=== PATIENT | male | born 1985 | race African-American/Black ===

== ENCOUNTER 2020-03-12 14:13 | Emergency (ER) | payer OTHER ==
[2020-03-12 14:24] VITALS: BP 134/89; PULSE 74; TEMP 98.1; BMI 25.4
[2020-03-12] MEDS ORDERED: ACETAMINOPHEN/CAFFEINE/BUTALBITAL 1 TAB PO ONE (14:56)
[2020-03-12] MEDS ORDERED: ACETAMINOPHEN/CAFFEINE/BUTALBITAL 1 TAB ONE (15:13)
== END 2020-03-12 16:48 | disposition home or self-care (01) ==
LOC: JER 14:13
DX: G44.209 Tension-type headache, unspecified, not intractable (principal)
CPT/HCPCS: 70450-TC; 99284-25

== ENCOUNTER 2021-10-01 09:08 | Emergency (ER) | payer OTHER ==
[2021-10-01 09:16] VITALS: BP 145/90; PULSE 65; TEMP 98.1; BMI 25.4
== END 2021-10-01 10:10 | disposition home or self-care (01) ==
LOC: FER 09:08
DX: R19.7 Diarrhea, unspecified (principal)
CPT/HCPCS: 99281-25

== ENCOUNTER 2024-04-11 12:37 | Emergency (ER) | payer OTHER ==
[2024-04-11 12:52] VITALS: BP 100/55; PULSE 80; RESP 18; TEMP 98.6; BMI 25.0
[2024-04-11] MEDS ORDERED: IBUPROFEN 600 MG TABLET (FP) PO ONE (13:19)
[2024-04-11] MEDS: IBUPROFEN 600 MG TABLET (FP) PO ONE (13:32)
[2024-04-11] MEDS ORDERED: AMOXICILLIN 250 MG CAPSULE PO ONE (15:21)
[2024-04-11] MEDS ORDERED: DOXYCYCLINE HYCLATE 100 MG CAPSULE PO ONE (15:22)
== END 2024-04-11 15:35 | disposition home or self-care (01) ==
LOC: JER 12:37
DX: J18.9 Pneumonia, unspecified organism (principal); J10.1 Influenza due to other identified influenza virus with other respiratory manifestations; R05.9 Cough, unspecified; R50.9 Fever, unspecified; R09.3 Abnormal sputum; R07.9 Chest pain, unspecified; Z20.822 Contact with and (suspected) exposure to COVID-19
CPT/HCPCS: 0241U-QW; 71046-TC-FY; 99284-25